=== PATIENT | male | born 1955 | race Caucasian/White ===

== ENCOUNTER → 2017-06-30 | Outpatient (CLI) | payer BC ==
[2017-06-30 16:44] LABS: Basophils % (A) 1 %; Eosinophils # (A) 0.1 k/uL (0-0.7); Eosinophils % (A) 2 %; HCT 48.7 % (39.0-53.0); HGB 15.7 gm/dL (13.0-17.5); Lymphocytes # (A) 1.9 k/uL (1.0-4.8); Lymphocytes % (A) 29 %; MCH 28.4 pg (25.0-35.0); MCHC 32.2 g/dL (31.0-37.0); MCV 88.2 fL (80.0-100.0); Mean Platelet Volume 6.6; Monocytes # (A) 0.3 k/uL (0-1.0); Monocytes % (A) 5 %; Neutrophils # (A) 4.2 k/uL (1.3-7.7); Neutrophils % (A) 62 %; Platelet Count 246 k/uL (150-450); RBC 5.52 m/uL (4.30-5.90); RDW 12.6 % (11.5-15.5); WBC 6.7 k/uL (3.8-10.6)
[2017-06-30 16:53] LABS: Potassium 4.8 mmol/L (3.5-5.1)
== END | disposition home or self-care (01) ==
LOC: LABPAT 15:28
PROVIDERS: ATTEND Orthopaedic Surgery
DX: Z01.818 Encounter for other preprocedural examination (principal); Z01.812 Encounter for preprocedural laboratory examination; M75.41 Impingement syndrome of right shoulder
CPT/HCPCS: 36415; 80051; 85025; 93005

== ENCOUNTER 2017-07-21 06:37 | Day surgery (SDC) | payer BC ==
[2017-07-17 17:49] VITALS: BMI 26.4
--- NOTE | 2017-07-20 11:34 | HP ---
HISTORY AND PHYSICAL CHIEF COMPLAINT: Right shoulder pain. 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 He is having pain with overhead use and at night. He has tried medications, injections and therapy with persistence of his symptoms. PAST MEDICAL HISTORY: Significant for depression. PAST SURGICAL HISTORY: Significant for bilateral knee arthroscopy in addition to left shoulder rotator cuff repair. MEDICATIONS: 1. Xanax. 2. Ibuprofen. He denies drug use. FAMILY HISTORY: Significant for cancer. SOCIAL HISTORY: Negative for current tobacco or alcohol use. 16 POINT REVIEW OF SYSTEMS: Otherwise reviewed and is noncontributory. PHYSICAL EXAMINATION: The patient is approximately 6 foot tall, 196 pounds of mesomorphic habitus. HEENT exam is nonfocal. Neck is supple. On examination of his right shoulder, he is tender about the anterior subacromial space. He has mild subacromial crepitus. Active range of motion, forward elevation at 165 degrees, external rotation with the arm at side 75 degrees, internal rotation to T12. Motor strength is 5-/5 for external rotation 5/5 for abduction. Impingement, Neer and Speed tests are positive. His distal neurovascular exam appears to be intact otherwise in the right upper extremity. MRI report for the right shoulder performed August 25, 2015 shows an anterior supraspinatus tendon tear. IMPRESSION: Right shoulder impingement with symptomatic rotator cuff tear. RECOMMENDATION: I talked to the patient at length regarding his treatment options. At this point, he remains quite symptomatic despite conservative measures. After thorough discussion, he opts to proceed with surgery. We will plan to proceed with arthroscopic evaluation with possible subacromial decompression, rotator cuff repair, and possible biceps debridement. Risks and benefits were discussed at length in layman's terms. We will likely perform that as an outpatient procedure. MMODL / IJN: [id number] /
[~2017-07-21 06:37] MED LIST: HYDROmorphone 0.5 MG/0.5 ML SYRINGE IVP PRN; LACTATED RINGERS 1,000 ML IV SCH; MIDAZOLAM 2 MG/2 ML VIAL IV PRN; MORPHINE SULFATE 4 MG/ML SYRINGE IV PRN; ONDANSETRON 4 MG/2 ML VIAL IVP PRN; Pre Op ABX Message 1 EACH MISC MISCELLANE ONE; ceFAZolin IN SWFI 2 GM/20 ML SYRINGE IVP ONE
[2017-07-21] MEDS ORDERED: LIDOCAINE 1% 20 ML VIAL (10MG/ML) FOR IV START INTRADERMA ONE (07:24)
[2017-07-21 07:25] VITALS: RESP 16
[2017-07-21] MEDS ORDERED: LIDOCAINE 2%-EPI 1:100,000 20 ML VIAL ONE (08:07)
[2017-07-21] MEDS ORDERED: fentaNYL (PF) 50 MCG/ML 2 ML AMP ONE (08:07)
[2017-07-21] MEDS ORDERED: SUCCINYLCHOLINE CHLORIDE VIAL 200 MG/10 ML VIAL IV ONE (08:07)
[2017-07-21] MEDS ORDERED: PHENYLEPHRINE-0.9% NACL SYG 1 MG/10 ML SYRINGE ONE (08:07)
[2017-07-21] MEDS ORDERED: ROPIVACAINE 5 MG/ML 30 ML VIAL ONE (08:07)
[2017-07-21] MEDS ORDERED: MIDAZOLAM 2 MG/2 ML VIAL ONE (08:07)
[2017-07-21] MEDS ORDERED: LIDOCAINE 1% INJ 10MG/ML (20 ML MDV) ONE (08:07)
[2017-07-21] MEDS ORDERED: PROPOFOL 10 MG/ML 20 ML VIAL IV ONE (08:07)
[2017-07-21] MEDS ORDERED: SODIUM CHLORIDE 0.9% 50 ML with ceFAZolin 2,000 MG IV ONE ×2 (08:18)
[2017-07-21] MEDS ORDERED: EPINEPHrine (PF) 1 ML in SODIUM CHLORIDE 0.9% IRRIGATIO 3,000 ML IRRIGATION ONE ×8 (08:30)
--- NOTE | 2017-07-21 09:42 | P.OP ---
Date of Procedure: 07/21/17 Preoperative Diagnosis: Symptomatic right rotator cuff tear Postoperative Diagnosis: 3 cm right rotator cuff tear/partial thickness tear long head of the biceps/ type I superior labral tear Procedure(s) Performed: Right shoulder arthroscopic rotator cuff repair/subacromial decompression/ biceps debridement/superior labral debridement Implants: Arthrex 4.75 mm swivel lock anchor 2, 5.5 mm swivel lock anchor 2 Anesthesia: MELODYA, regional Surgeon: Jeffrey Hernández Lay Out Maker #1: Felton Gonzlaez Estimated Blood Loss (ml): 10 Pathology: none sent Condition: stable Disposition: PACU Indications for Procedure: The patient is a 61-year-old male presents with progressive right shoulder pain secondary to a rotator cuff tear despite conservative measures. A discussion of the risks and benefits of operative intervention versus continued conservative measures was made with the patient. He opted to proceed with surgery. Operative risks to include infection, neurovascular injury, development of blood clots, possible tendon rerupture, possible postoperative stiffness and need for subsequent procedures was discussed. Informed consent was obtained. Operative Findings: As below Description of Procedure: The patient was brought to the operating room, and after induction of general anesthesia was placed in a beachchair position. I examined the right shoulder. There was no gross block to passive motion. There was no gross glenohumeral instability. The right upper extremity was prepped and draped in normal fashion. The bony outlines the acromion, distal clavicle, and coracoid process were outlined with a skin marker. The glenohumeral joint was inflated 50 mL of saline utilizing a spinal needle from posterior approach. A blunt trocar was used to easily into the joint. Diagnostic arthroscopy was performed. An anterior portal was made lateral to the coracoid process entering the joint above the subscapularis tendon. The subscapularis appeared to be intact. Anterior labrum was intact. A partial thickness tear involving the into articular portion of the long head of biceps was noted. This involved less than 10% of the tendon thickness. This was debrided back to stable base with a motorized shaver. A type I superior labral tear was noted and this was debrided back to stable base with motorized shaver. The posterior labrum was intact. On inspection of the rotator cuff, a 2.5 cm full-thickness tear was noted involving the supraspinatus and a small portion of the infraspinatus tendon. The posterior portion the cuff was intact. The inferior recess was inspected. Minimal degenerative changes involving the humeral head and glenoid were noted. The arthroscope was then placed into the subacromial space. A lateral portal was made through a 5 Charline a incision 27 inferior to the anterolateral border the acromion. The soft tissue on the undersurface of the acromion was treated with a motorized shaver and with electrocautery clearly defining the anterior medial and lateral borders as well as the distal clavicle. The coracoacromial ligament was detached from the anterior acromion with electrocautery. An anterior inferior acromioplasty was performed starting anterolateral, then extending this posteriorly, then extending this medially. Is able to convert to a flat acromion. This is verified from the posterior and lateral viewing portals. Attention was then paid towards the rotator cuff. This is easily mobilized back to the greater tuberosity. The edges were debrided with a motorized shaver. The greater tuberosity was prepared and lightly decorticated down to bleeding bony surface. An accessory superior lateral portal( made just lateral to the acromion through a 4 mm skin incision for placement of the anchors. 2 anchors were then placed just off the articular surface with the appropriate starting awl. 4.75 mm anchors were placed with #2 fiber tape preloaded. Good purchase was obtained. The fiber tape was then passed the rotator cuff with a scorpion suture passer. These tapes were then crisscrossed and a lateral row was created utilizing 2 anchors measuring 5.5 mm in diameter. The rotator cuff was appropriately tensioned. Good purchase was obtained with these anchors. Final arthroscopic view showed adequate yarsani of footprint with compression. The arthroscope was then removed. The portals were closed with simple 3-0 nylon suture. A sterile dressing was applied in addition to an abductor brace. The patient was awoken from general anesthesia and transferred to the recovery room in good condition. Blood loss was estimated at 10 mL. No complications were incurred. Sponge and needle counts were correct at the end the case.
[2017-07-21] MEDS ORDERED: HYDROmorphone 2 MG/ML 1 ML SYRINGE IVP ONE (09:45)
[2017-07-21 09:50] VITALS: TEMP 97
[2017-07-21] MEDS ORDERED: HYDROcodone/APAP 5-325MG 1 EACH TAB PO ONE (11:00)
[2017-07-21 11:15] VITALS: BP 130/86; PULSE 74
--- NOTE | 2017-07-23 12:02 | P.ONQ ---
Anesthesiology Proc Note - PNB - Peripheral Nerve Block Performed Right Interscalene Single Time Out Performed: Yes Procedure Start Time: 07:36 Procedure Stop Time: 07:42 Indication: Acute Post-Operative Pain, Requested by physician Sedation Type: Sedate with meaningful contact maintained Preparation: Sterile Prep Position: Supine Needle Size: 50mm (2") Needle Gauge: 21 Technique: Ultrasound Injectate: 0.5% Ropivacaine (see comment for volume) (ropi .5% 30cc) Blood Aspirated: No Pain Paresthesia on Injection Noted: No Resistance on Injection: Normal Events: Uneventful and Well Tolerated
== END 2017-07-21 12:24 | disposition home or self-care (01) ==
LOC: OR 06:37
PROVIDERS: ATTEND Orthopaedic Surgery
DX: M75.101 Unspecified rotator cuff tear or rupture of right shoulder, not specified as traumatic (principal); S46.111A Strain of muscle, fascia and tendon of long head of biceps, right arm, initial encounter; S43.491A Other sprain of right shoulder joint, initial encounter; X58.XXXA Exposure to other specified factors, initial encounter; M24.811 Other specific joint derangements of right shoulder, not elsewhere classified; M19.011 Primary osteoarthritis, right shoulder; F32.9 Major depressive disorder, single episode, unspecified; F41.9 Anxiety disorder, unspecified; Z85.038 Personal history of other malignant neoplasm of large intestine; Z79.1 Long term (current) use of non-steroidal anti-inflammatories (NSAID); Z79.899 Other long term (current) drug therapy
CPT/HCPCS: 64415; 29827; 29826; C1713 ×3; J2250; J0330; J1170 ×2; J2405; J0171; J2001; J3010; J0690; J2795; J2370; J2704

== ENCOUNTER 2018-01-15 11:06 | Emergency (ER) | payer BC ==
[2018-01-15] MEDS ORDERED: KETOROLAC 30 MG/ML 1 ML VIAL IVP STA (11:17)
[2018-01-15] MEDS ORDERED: SODIUM CHLORIDE 0.9% 1,000 ML IV STA (11:17)
[2018-01-15] MEDS ORDERED: METOCLOPRAMIDE 5 MG/ML 2 ML VIAL IVP STA (11:17)
--- NOTE | 2018-01-15 11:22 | ED ---
General Adult HPI - General Chief complaint: Back Pain/Injury Stated complaint: Back pain Time Seen by Provider: 01/15/18 11:12 Source: patient, EMS, RN notes reviewed Mode of arrival: EMS Limitations: no limitations - History of Present Illness Initial comments: Patient is a pleasant 62-year-old male presenting to the emergency Department with right flank discomfort. Onset was just around 1 hour ago. Discomfort was sudden onset. Discomfort feels cramping in nature. Discomfort extends from the right posterior flank around to the abdomen. Patient states it is hard to get comfortable. Discomfort is not positional. No discomfort with hitting the bumps by EMS. Patient did have one episode of vomiting. No constipation or diarrhea. No dysuria or hematuria. No history of similar symptoms previously. - Related Data Home Medications Medication Instructions Recorded Confirmed ALPRAZolam [Xanax] 0.5 mg PO Q8HR PRN 01/27/15 01/15/18 Calcium Carbonate [Tums] 500 mg PO AC-TID PRN 01/27/15 01/15/18 Cetirizine HCl [Zyrtec] 10 mg PO DAILY 01/15/18 01/15/18 Ibuprofen [Motrin Ib] 600 mg PO Q6H PRN 01/15/18 01/15/18 Allergies Allergy/AdvReac Type Severity Reaction Status Date / Time No Known Allergies Allergy Verified 01/15/18 11:33 Review of Systems ROS Statement: Those systems with pertinent positive or pertinent negative responses have been documented in the HPI. ROS Other: All systems not noted in ROS Statement are negative. Constitutional: Denies: fever Eyes: Denies: eye pain ENT: Denies: ear pain Respiratory: Denies: dyspnea Cardiovascular: Denies: chest pain Endocrine: Denies: fatigue Gastrointestinal: Reports: abdominal pain, vomiting. Denies: diarrhea, constipation Genitourinary: Denies: hematuria Musculoskeletal: Reports: back pain Skin: Denies: rash Neurological: Denies: weakness Past Medical History Past Medical History: Cancer, Hyperlipidemia, Osteoarthritis (OA), Skin Disorder Additional Past Medical History / Comment(s): NON HODGKINS LYMPHOMA DX 2003-HAD CHEMO. MILD PSORIASIS History of Any Multi-Drug Resistant Organisms: None Reported Past Surgical History: Bowel Resection, Orthopedic Surgery Additional Past Surgical History / Comment(s): BOWEL RESECTION R/T REMOVAL OF ABD. TUMOR. BILAT KNEE SCOPES. COLONOSCOPY Past Anesthesia/Blood Transfusion Reactions: Motion Sickness Past Psychological History: No Psychological Hx Reported Smoking Status: Never smoker Past Alcohol Use History: None Reported Past Drug Use History: None Reported - Past Family History Mother Family Medical History: Cancer Sister(s) Family Medical History: Cancer Additional Family Medical History / Comment(s): 2 SISTERS WITH HX CANCER General Exam Limitations: no limitations General appearance: alert, in distress (Patient does appear uncomfortable) Head exam: Present: atraumatic Eye exam: Present: normal appearance, PERRL ENT exam: Present: normal oropharynx Neck exam: Present: normal inspection Respiratory exam: Present: normal lung sounds bilaterally Cardiovascular Exam: Present: regular rate, normal rhythm Expanded Peripheral pulses: 2+: Radial (R), Radial (L), Dorsalis Pedis (R), Dorsalis Pedis (L) GI/Abdominal exam: Present: soft, normal bowel sounds. Absent: distended, tenderness, guarding, rebound, rigid, pulsatile mass Extremities exam: Present: normal inspection. Absent: pedal edema, calf tenderness Back exam: Present: normal inspection. Absent: tenderness, CVA tenderness (R) ( No tenderness in the right CVA however patient states that is where the discomfort starts) Neurological exam: Present: alert Psychiatric exam: Present: normal affect, normal mood Skin exam: Present: normal color. Absent: rash Course Vital Signs 01/15/18 11:11 Temperature 97.6 F Pulse Rate 66 Respiratory 20 Rate Blood Pressure 144/80 O2 Sat by Pulse 100 Oximetry Medical Decision Making - Medical Decision Making Patient reevaluated and resting comfortably in bed. Patient symptom-free. Patient and family updated on results. - Lab Data Result diagrams: 01/15/18 11:15 01/15/18 11:15 Lab Results 01/15/18 01/15/18 01/15/18 Range/Units 11:15 11:15 11:15 WBC 7.0 (3.8-10.6) k/uL RBC 5.54 (4.30-5.90) m/uL Hgb 15.4 (13.0-17.5) gm/dL Hct 46.8 (39.0-53.0) % MCV 84.4 (80.0-100.0) fL MCH 27.7 (25.0-35.0) pg MCHC 32.8 (31.0-37.0) g/dL RDW 13.1 (11.5-15.5) % Plt Count 252 (150-450) k/uL Neutrophils % 54 % Lymphocytes % 34 % Monocytes % 6 % Eosinophils % 3 % Basophils % 0 % Neutrophils # 3.8 (1.3-7.7) k/uL Lymphocytes # 2.4 (1.0-4.8) k/uL Monocytes # 0.4 (0-1.0) k/uL Eosinophils # 0.2 (0-0.7) k/uL Basophils # 0.0 (0-0.2) k/uL PT 10.0 (9.0-12.0) sec INR 1.0 (<1.2) APTT 22.8 (22.0-30.0) sec Sodium 140 (137-145) mmol/L Potassium 4.2 (3.5-5.1) mmol/L Chloride 109 H (98-107) mmol/L Carbon Dioxide 23 (22-30) mmol/L Anion Gap 8 mmol/L BUN 16 (9-20) mg/dL Creatinine 0.76 (0.66-1.25) mg/dL Est GFR (CKD-EPI)AfAm >90 (>60 ml/min/1.73 sqM) Est GFR (CKD-EPI)NonAf >90 (>60 ml/min/1.73 sqM) Glucose 96 (74-99) mg/dL Calcium 9.1 (8.4-10.2) mg/dL Total Bilirubin 0.4 (0.2-1.3) mg/dL AST 32 (17-59) U/L ALT 30 (21-72) U/L Alkaline Phosphatase 82 (38-126) U/L Total Protein 6.6 (6.3-8.2) g/dL Albumin 4.0 (3.5-5.0) g/dL Amylase 67 (30-110) U/L Lipase 159 (23-300) U/L Urine Color Urine Appearance (Clear) Urine pH (5.0-8.0) Ur Specific [place] (1.001-1.035) Urine Protein (Negative) Urine Glucose (UA) (Negative) Urine Ketones (Negative) Urine Blood (Negative) Urine Nitrite (Negative) Urine Bilirubin (Negative) Urine Urobilinogen (<2.0) mg/dL Ur Leukocyte Esterase (Negative) Urine RBC (0-5) /hpf Urine WBC (0-5) /hpf Ur Squamous Epith Cells (0-4) /hpf Urine Mucus (None) /hpf 01/15/18 Range/Units 12:35 WBC (3.8-10.6) k/uL RBC (4.30-5.90) m/uL Hgb (13.0-17.5) gm/dL Hct (39.0-53.0) % MCV (80.0-100.0) fL MCH (25.0-35.0) pg MCHC (31.0-37.0) g/dL RDW (11.5-15.5) % Plt Count (150-450) k/uL Neutrophils % % Lymphocytes % % Monocytes % % Eosinophils % % Basophils % % Neutrophils # (1.3-7.7) k/uL Lymphocytes # (1.0-4.8) k/uL Monocytes # (0-1.0) k/uL Eosinophils # (0-0.7) k/uL Basophils # (0-0.2) k/uL PT (9.0-12.0) sec INR (<1.2) APTT (22.0-30.0) sec Sodium (137-145) mmol/L Potassium (3.5-5.1) mmol/L Chloride (98-107) mmol/L Carbon Dioxide (22-30) mmol/L Anion Gap mmol/L BUN (9-20) mg/dL Creatinine (0.66-1.25) mg/dL Est GFR (CKD-EPI)AfAm (>60 ml/min/1.73 sqM) Est GFR (CKD-EPI)NonAf (>60 ml/min/1.73 sqM) Glucose (74-99) mg/dL Calcium (8.4-10.2) mg/dL Total Bilirubin (0.2-1.3) mg/dL AST (17-59) U/L ALT (21-72) U/L Alkaline Phosphatase (38-126) U/L Total Protein (6.3-8.2) g/dL Albumin (3.5-5.0) g/dL Amylase (30-110) U/L Lipase (23-300) U/L Urine Color Yellow Urine Appearance Clear (Clear) Urine pH 7.0 (5.0-8.0) Ur Specific [place] 1.016 (1.001-1.035) Urine Protein Negative (Negative) Urine Glucose (UA) Negative (Negative) Urine Ketones Negative (Negative) Urine Blood Large H (Negative) Urine Nitrite Negative (Negative) Urine Bilirubin Negative (Negative) Urine Urobilinogen <2.0 (<2.0) mg/dL Ur Leukocyte Esterase Trace H (Negative) Urine RBC 35 H (0-5) /hpf Urine WBC 3 (0-5) /hpf Ur Squamous Epith Cells <1 (0-4) /hpf Urine Mucus Occasional H (None) /hpf - Radiology Data Radiology results: report reviewed (Computed tomography scan of the abdomen pelvis shows 3 mm stone in the bladder consistent with recently passed stone. Hernia.), image reviewed (KUB shows no acute process.) Disposition Clinical Impression: Ureterolithiasis Disposition: HOME SELF-CARE Condition: Stable Instructions: Kidney Stones (ED) Additional Instructions: Please follow-up with primary care physician in the next couple days for recheck. Return for fevers, difficulty with urinating, increased pain, worsening or changing symptoms or other concerns. Is patient prescribed a controlled substance at d/c from ED?: No Referrals: Crescencio Young MD [Primary Care Provider] - 1-2 days Time of Disposition: 13:20
[2018-01-15 12:01] LABS: Basophils % (A) 0 %; Eosinophils # (A) 0.2 k/uL (0-0.7); Eosinophils % (A) 3 %; HCT 46.8 % (39.0-53.0); HGB 15.4 gm/dL (13.0-17.5); Lymphocytes # (A) 2.4 k/uL (1.0-4.8); Lymphocytes % (A) 34 %; MCH 27.7 pg (25.0-35.0); MCHC 32.8 g/dL (31.0-37.0); MCV 84.4 fL (80.0-100.0); Mean Platelet Volume 7.5; Monocytes # (A) 0.4 k/uL (0-1.0); Monocytes % (A) 6 %; Neutrophils # (A) 3.8 k/uL (1.3-7.7); Neutrophils % (A) 54 %; Platelet Count 252 k/uL (150-450); RBC 5.54 m/uL (4.30-5.90); RDW 13.1 % (11.5-15.5)
--- NOTE | 2018-01-15 12:08 | CT ---
EXAMINATION TYPE: CT abdomen pelvis wo con DATE OF EXAM: 01/15/2018 COMPARISON: None HISTORY: Right-sided flank pain CT DLP: 583.9 mGycm Automated exposure control for dose reduction was used. TECHNIQUE: Helical acquisition of images was performed from the lung bases through the pelvis. FINDINGS: LUNG BASES: Reticular opacities at the lung bases is favored to represent atelectasis. LIVER/GB: No cholelithiasis. Unremarkable unenhanced morphology of the liver. PANCREAS: No significant abnormality is seen. No ductal dilatation. SPLEEN: No splenomegaly. ADRENALS: No nodularity or thickening. 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 There is slight blunting of the rig ht calyces and very mild right ureteral dilatation. A 3 mm calculus is seen within the urinary bladde r just distal to the right ureterovesicular Junction likely representing a recently passed calculus. Mild fat stranding at the right renal pelvis such as on series 3 image 51. Within the right lower barbie e there is a nonobstructing additional 5 mm calculus. There is also slight malrotation of the left re nal axis. Punctate mid pole 2 mm and lower pole 3 mm nonobstructing renal calculi are seen. No left-s ided hydronephrosis.. FREE AIR: No free air is visualized REPRODUCTIVE ORGANS: Prostate gland is heterogenous containing numerous dystrophic calcifications. ADENOPATHY: No greater than 1 cm short axis lymph nodes are present within the abdomen or pelvis. OSSEOUS STRUCTURES: No significant abnormality is seen. BOWEL: There is a moderate amount retained colonic stool. Scattered diverticula are present without pericolonic fat stranding. Anastomotic small bowel site is not identified with no evidence of obstruc tive stricture. Appendix is within normal limits. OTHER: There is an omental fat filled wide necked ventral abdominal hernia with a 4.2 cm abdominal wa ll defect. No abutting bowel. This is seen superior to the umbilicus. Moderate calcific atheromatous changes are seen of the abdominal aorta and its branches. IMPRESSION: 1. MILD RIGHT HYDROURETERONEPHROSIS SECONDARY TO A 3 MM CALCULUS WITHIN THE URINARY BLADDER JUST DIST AL TO THE RIGHT URETEROVESICULAR JUNCTION.REPRESENT A RECENTLY PASSED CALCULUS. ADDITIONAL NONOBSTRUC TING BILATERAL RENAL CALCULI ARE PRESENT. 2. FAT FILLED SUPRAUMBILICAL VENTRAL ABDOMINAL HERNIA WITH A WIDE NECK AND NO ABUTTING BOWEL.
[2018-01-15 12:12] LABS: ALT 30 U/L (21-72); AST 32 U/L (17-59); Alkaline Phosphatase 82 U/L (38-126); Amylase 67 U/L (30-110); Anion Gap 8 mmol/L; Blood Urea Nitrogen 16 mg/dL (9-20); Calcium 9.1 mg/dL (8.4-10.2); Carbon Dioxide 23 mmol/L (22-30); Chloride 109 mmol/L (98-107); Glucose 96 mg/dL (74-99); Lipase 159 U/L (23-300); Potassium 4.2 mmol/L (3.5-5.1); Sodium 140 mmol/L (137-145); Total Bilirubin 0.4 mg/dL (0.2-1.3); Total Protein 6.6 g/dL (6.3-8.2)
[2018-01-15 12:36] LABS: Partial Thromboplastin Time 22.8 sec (22.0-30.0)
--- NOTE | 2018-01-15 12:37 | XR ---
Abdomen HISTORY: Right flank pain, abdominal pain Frontal view of the abdomen on 2 images, correlation to CT abdomen pelvis same date Lung bases are clear. There is no evident bowel obstruction or pneumoperitoneum. There are multiple c alcifications scattered within the pelvis. Mild degenerative disc changes noted in the visualized spi ne. IMPRESSION: Patient's distal right ureteral calculus not well seen possibly due to size, technique.
[2018-01-15 13:02] LABS: Appearance,Urine Clear (Clear); Bilirubin,Urine Negative (Negative); Blood,Urine Large (Negative); Color,Urine Yellow; Glucose,Urine (UA) Negative (Negative); Ketones,Urine Negative (Negative); Leukocyte Esterase,Urine Trace (Negative); Mucus,Urine Occasional /hpf; Nitrite,Urine Negative (Negative); Protein,Urine Negative (Negative); RBC,Urine 35 /hpf (0-5); Specific Gravity,Urine 1.016 (1.001-1.035); Squamous Epithelial Cell,Urine <1 /hpf (0-4); Urobilinogen,Urine <2.0 mg/dL (<2.0); WBC,Urine 3 /hpf (0-5)
[2018-01-15 13:36] VITALS: BP 118/78; PULSE 70; RESP 18; TEMP 98
== END 2018-01-15 13:36 | disposition home or self-care (01) ==
LOC: EC 11:06
DX: N20.1 Calculus of ureter (principal); K46.9 Unspecified abdominal hernia without obstruction or gangrene; Z79.899 Other long term (current) drug therapy; Z85.72 Personal history of non-Hodgkin lymphomas; Z92.21 Personal history of antineoplastic chemotherapy; Z90.49 Acquired absence of other specified parts of digestive tract
CPT/HCPCS: 36415; 80053; 82150; 83690; 85025; 85610; 85730; 81001; 74018; 74176; 99284; 96374; 96375; 96361 ×2; J2765; J1885

== ENCOUNTER → 2018-11-30 | Outpatient (CLI) | payer BC ==
--- NOTE | 2018-12-01 15:32 | XR ---
EXAMINATION TYPE: XR chest 2V DATE OF EXAM: 11/30/2018 COMPARISON: NONE HISTORY: Dyspnea. History of non-Hodgkin lymphoma. TECHNIQUE: Frontal and lateral views of the chest are obtained. FINDINGS: There is no focal air space opacity, pleural effusion, or pneumothorax seen. The cardiac silhouette size is within normal limits. The osseous structures are intact. IMPRESSION: No acute cardiopulmonary process.
--- NOTE | 2018-12-01 16:29 | XR ---
EXAMINATION TYPE: XR abdomen 2V DATE OF EXAM: 11/30/2018 CLINICAL HISTORY: Dyspnea and abdominal discomfort. TECHNIQUE: Supine and upright views of the abdomen are obtained. COMPARISON: Abdominal x-ray and CT January 15, 2018. FINDINGS: Scattered gas is seen in non-distended stomach and small bowel loops. Gas and fecal mater ial is seen in non-distended colon. A few scattered left-sided pelvic phleboliths are present. Lung b ases are clear. No pneumoperitoneum is present. Pelvic vascular calcification is again seen. IMPRESSION: Overall nonobstructive bowel gas pattern remains present.
== END | disposition home or self-care (01) ==
LOC: RADXRMAIN 16:14
PROVIDERS: ATTEND Internal Medicine Hematology & Oncology
DX: C82.09 Follicular lymphoma grade I, extranodal and solid organ sites (principal)
CPT/HCPCS: 71046; 74019

== ENCOUNTER 2018-12-18 07:40 | Day surgery (SDC) | payer BC ==
[2018-12-13 14:52] VITALS: BMI 25.7
[~2018-12-18 07:40] MED LIST changes: -HYDROmorphone 0.5 MG/0.5 ML SYRINGE IVP PRN; +LIDOCAINE 1% 20 ML VIAL (10MG/ML) FOR IV START INTRADERMA PRN; -MIDAZOLAM 2 MG/2 ML VIAL IV PRN; -MORPHINE SULFATE 4 MG/ML SYRINGE IV PRN; -ONDANSETRON 4 MG/2 ML VIAL IVP PRN; -Pre Op ABX Message 1 EACH MISC MISCELLANE ONE; -ceFAZolin IN SWFI 2 GM/20 ML SYRINGE IVP ONE
[2018-12-18 07:53] VITALS: TEMP 98
[2018-12-18] MEDS ORDERED: PROPOFOL 10 MG/ML 20 ML VIAL IV ONE (08:05)
--- NOTE | 2018-12-18 08:12 | P.GSHP ---
History of Present Illness H&P Date: 12/18/18 Chief Complaint: gerd, screening Patient here today for upper and lower endoscopy. Patient has a complaints of intermittent reflux and cough along. No bowel related complaints. No family history of colon cancer. Last colonoscopy 2002. He has tried antacids with no relief. Past Medical History Past Medical History: Cancer, Hyperlipidemia, Osteoarthritis (OA), Skin Disorder Additional Past Medical History / Comment(s): NON HODGKINS LYMPHOMA DX 2002-HAD CHEMO. MILD PSORIASIS History of Any Multi-Drug Resistant Organisms: None Reported Past Surgical History: Bowel Resection, Orthopedic Surgery Additional Past Surgical History / Comment(s): BOWEL RESECTION R/T REMOVAL OF ABD. TUMOR. BILAT KNEE SCOPES. COLONOSCOPY. BILAT ROTATOR CUFF REPAIR Past Anesthesia/Blood Transfusion Reactions: Motion Sickness Smoking Status: Never smoker - Past Family History Mother Family Medical History: Cancer Sister(s) Family Medical History: Cancer Additional Family Medical History / Comment(s): 2 SISTERS WITH HX CANCER Medications and Allergies Home Medications Medication Instructions Recorded Confirmed Type No Known Home Medications 12/13/18 12/18/18 History Allergies Allergy/AdvReac Type Severity Reaction Status Date / Time No Known Allergies Allergy Verified 12/13/18 14:28 Surgical - Exam Vital Signs Temp Pulse Resp BP Pulse Ox 98.0 F 96 16 137/82 98 12/18/18 07:51 12/18/18 07:51 12/18/18 07:51 12/18/18 07:51 12/18/18 07:51 Physical exam: General: Well-developed, well-nourished HEENT: Normocephalic, sclerae nonicteric Abdomen: Nontender, nondistended Extremities: No edema Neuro: Alert and oriented Assessment and Plan (1) Colon cancer screening Narrative/Plan: Will proceed with upper and lower endoscopy at this time. Current Visit: Yes Status: Acute Code(s): Z12.11 - ENCOUNTER FOR SCREENING FOR MALIGNANT NEOPLASM OF COLON SNOMED Code(s): 097567454
--- NOTE | 2018-12-18 08:35 | P.PCN ---
Date of Procedure: 12/18/18 Procedure(s) Performed: PREOPERATIVE DIAGNOSIS: GERD, screening POSTOPERATIVE DIAGNOSIS: Gastric nodule, gastritis, hiatal hernia, ascending colon polyp PROCEDURE: 1. EGD with biopsy 2. Colonoscopy with biopsy ANESTHESIA: MAC SURGEON: Kurtis Javier M.D. SPECIMENS: Gastric nodule, antrum, polyp ENDOSCOPIC PROCEDURE: The patient was on the endoscopy table in the left decubitus position. The Olympus gastroscope was inserted into the oropharynx and passed under direct visualization to the region of the third portion of the duodenum. From that point the scope was slowly withdrawn inspecting all surfaces carefully. There were no neoplastic inflammatory or polypoid lesions throughout the duodenum. The pylorus was widely patent. The stomach was carefully inspected. There was mild gastritis present. A there was also a small 7-8 mm submucosal nodule in the antrum of the stomach. A biopsy of this area took place as well. A biopsy of the antrum took place to rule out H. pylori. Retroflexion revealed a hiatal hernia. The Z line was present 2 cm above the diaphragmatic hiatus. The patient's esophagus was examined and appeared normal. The patient was kept on the endoscopy table in the left decubitus position. The Olympus colonoscope was inserted into the anus and passed under direct visualization to the base of the cecum. The appendiceal orifice was visualized. From that point the scope was slowly withdrawn inspecting all surfaces carefully. There were no neoplastic inflammatory or polypoid lesions throughout the cecum. In the ascending colon a small polyp was identified and removed using the cold biopsy forceps. The remainder of the transverse descending sigmoid and rectum appeared normal. There was no visible diverticulosis. Digital rectal examination was normal. The patient was taken to the recovery room in stable condition per anesthesia guidelines. RECOMMENDATIONS: Await biopsy results.
[2018-12-18 09:05] VITALS: BP 122/82; PULSE 79; RESP 18
== END 2018-12-18 09:41 | disposition home or self-care (01) ==
LOC: ORWHC2ENDO 07:40
PROVIDERS: ATTEND Surgery
DX: Z12.11 Encounter for screening for malignant neoplasm of colon (principal); D12.2 Benign neoplasm of ascending colon; K29.50 Unspecified chronic gastritis without bleeding; K21.9 Gastro-esophageal reflux disease without esophagitis; K44.9 Diaphragmatic hernia without obstruction or gangrene; E78.5 Hyperlipidemia, unspecified; M19.90 Unspecified osteoarthritis, unspecified site; L40.9 Psoriasis, unspecified; Z90.49 Acquired absence of other specified parts of digestive tract; Z92.21 Personal history of antineoplastic chemotherapy; Z85.72 Personal history of non-Hodgkin lymphomas
CPT/HCPCS: 88305; 45380; 43239; J2704

== ENCOUNTER 2024-12-15 15:18 | Emergency (ER) | payer MEDICARE, OTHER ==
[2024-12-15] MEDS: PANTOPRAZOLE 40 MG/10 ML VIAL IVP STA (16:10)
[2024-12-15] MEDS: ONDANSETRON 4 MG/2 ML VIAL IVP STA (16:10)
[2024-12-15] MEDS: KETOROLAC 15 MG/ML 1 ML VIAL IVP STA (16:11)
[2024-12-15] MEDS: MORPHINE SULFATE 4 MG/ML SYRINGE IVP STA (16:12)
[2024-12-15] MEDS: SODIUM CHLORIDE 0.9% 1,000 ML IV ONE ×2 (16:16→17:47)
[2024-12-15 16:26] LABS: Basophils # (A) 0.05 10*3/uL (0.00-0.10); Basophils % (A) 0.6 %; Eosinophils # (A) 0.11 10*3/uL (0.04-0.35); Eosinophils % (A) 1.4 %; HCT 45.6 % (39.6-50.0); HGB 15.5 g/dL (13.0-17.0); Lymphocytes # (A) 1.75 10*3/uL (0.90-5.00); Lymphocytes % (A) 21.6 %; MCH 29.1 pg (27.0-32.0); MCV 85.7 fL (80.0-97.0); Mean Platelet Volume 9.1 fL (9.5-12.2); Monocytes # (A) 0.41 10*3/uL (0.20-1.00); Monocytes % (A) 5.1 %; Neutrophils # (A) 5.76 10*3/uL (1.80-7.70); Neutrophils % (A) 71.2 %; Platelet Count 262 10*3/uL (140-440); RBC 5.32 10*6/uL (4.40-5.60); RDW 12.8 % (11.5-14.5); WBC 8.09 10*3/uL (4.50-10.00)
[2024-12-15 16:37] LABS: ALT 23 U/L (4-49); AST 36 U/L (17-59); African American GFR (CKD) >90 (>60 ml/min/1.73 sqM); Albumin 4.9 g/dL (3.5-5.0); Alkaline Phosphatase 85 U/L (38-126); Amylase 72 U/L (30-110); Anion Gap 12 mmol/L; Blood Urea Nitrogen 16 mg/dL (9-20); Calcium 10.1 mg/dL (8.4-10.2); Carbon Dioxide 24 mmol/L (22-30); Chloride 101 mmol/L (98-107); Glucose 111 mg/dL (74-99); Lipase 143 U/L (23-300); Non-African American GFR(CKD) 88 (>60 ml/min/1.73 sqM); Potassium 4.5 mmol/L (3.5-5.1); Sodium 137 mmol/L (137-145); Total Bilirubin 0.6 mg/dL (0.2-1.3); Total Protein 7.8 g/dL (6.3-8.2)
--- NOTE | 2024-12-15 17:26 | ED ---
General Adult HPI - General Chief complaint: Abdominal Pain Stated complaint: Left flank pain Time Seen by Provider: 12/15/24 15:42 Source: patient, RN notes reviewed, old records reviewed Mode of arrival: ambulatory Limitations: no limitations - History of Present Illness Initial comments: Patient is a 69-year-old male presents emergency department complaining of left flank pain for a few days. He has a history of kidney stones on the right. History of non-Hodgkin's lymphoma as well. Has not seen a physician regarding this. Has not noticed any dysuria or hematuria. States the pain reminds him of his previous kidney stones. Endorses mild nausea. Denies any diarrhea. Denies any chest pain or shortness of breath. Denies any fevers. Denies any cough or congestion. Presents for further evaluation at this time. - Related Data Previous Rx's Medication Instructions Recorded Ketorolac [Toradol] 15 mg IM TID PRN 5 Days #15 each 12/15/24 Tamsulosin [Flomax] 0.4 mg PO DAILY 14 Days #14 cap 12/15/24 Allergies Allergy/AdvReac Type Severity Reaction Status Date / Time No Known Allergies Allergy Verified 12/15/24 15:33 Review of Systems ROS Statement: Those systems with pertinent positive or pertinent negative responses have been documented in the HPI. Review of Systems: CONST: Denies fever EYES: Denies blurry vision ENT: Denies nasal congestion C/V: Denies Chest pain RESP: Denies shortness of breath GI: Endorses abdominal pain : Denies dysuria SKIN: Denies rash. MSK: Denies joint pain. NEURO: Denies headache ROS Other: All systems not noted in ROS Statement are negative. Past Medical History Past Medical History: Cancer, Hyperlipidemia, Osteoarthritis (OA), Skin Disorder Additional Past Medical History / Comment(s): NON HODGKINS LYMPHOMA DX 2003-HAD CHEMO,Kidney stones. MILD PSORIASIS History of Any Multi-Drug Resistant Organisms: None Reported Past Surgical History: Bowel Resection, Orthopedic Surgery Additional Past Surgical History / Comment(s): BOWEL RESECTION R/T REMOVAL OF A BD. TUMOR. BILAT KNEE SCOPES. COLONOSCOPY. BILAT ROTATOR CUFF REPAIR Past Anesthesia/Blood Transfusion Reactions: Motion Sickness Past Psychological History: No Psychological Hx Reported Smoking Status: Never smoker Past Alcohol Use History: None Reported Past Drug Use History: None Reported - Past Family History Mother Family Medical History: Cancer Sister(s) Family Medical History: Cancer Additional Family Medical History / Comment(s): 2 SISTERS WITH HX CANCER General Exam - General Exam Comments Initial Comments: General: Appears in mild distress secondary to abdominal pain. HEAD: Normal with no signs of head trauma. EYES: PERRLA, EOMI, conjunctiva normal, no discharge. Pupils are 3 mm and equal bilaterally. ENT: Hearing grossly intact, normal oropharynx. RESPIRATORY: Clear breath sounds bilaterally. No wheezes, rales, or rhonchi. C/V: Regular rate and rhythm. S1 and S2 auscultated, peripheral pulses 2+ and intact throughout ABD: Abdomen soft, nondistended. Tender palpation over the left flank. No significant CVA tenderness percussion but is tender throughout the left flank radiating from the back to the groin region. No guarding or rebound tenderness. No peritoneal signs. EXT: no obvious deformity SKIN: No rashes or lesions observed on exposed skin. NEURO: Alert and oriented x 4. Limitations: no limitations Course Vital Signs 12/15/24 12/15/24 15:31 19:13 Temperature 97.5 F L 97.9 F Pulse Rate 72 69 Respiratory 20 18 Rate Blood Pressure 168/95 151/82 O2 Sat by Pulse 98 99 Oximetry Medical Decision Making - Medical Decision Making Was pt. sent in by a medical professional or institution ([facility], [facility], urgent care, hospital, or group home...) When possible be specific @ -No Did you speak to anyone other than the patient for history (EMS, parent, family, police, friend...)? What history was obtained from this source @ -No Did you review nursing and triage notes (agree or disagree)? Why? @ -I reviewed and agree with nursing and triage notes Were old charts reviewed (outside hosp., previous admission, EMS record, old EKG, old radiological studies, urgent care reports/EKG's, group home records)? Report findings @ -No old charts were reviewed Differential Diagnosis (chest pain, altered mental status, abdominal pain women, abdominal pain men, vaginal bleeding, weakness, fever, dyspnea, syncope, headache, dizziness, GI bleed, back pain, seizure, CVA, palpatations, mental health, musculoskeletal)? @ -Differential Abdominal Pain Men: Appendicitis, cholecystitis, diverticulosis, ischemic bowel, pancreatitis, hepatitis, UTI, gastroenteritis, AAA, incarcerated hernia, bowel obstruction, constipation, inflammatory bowel, hepatitis, peptic ulcer disease, splenic infarction, perforated viscus, testicular torsion, this is not meant to be an all-inclusive list EKG interpreted by me (3pts min.). @ -As above X-rays interpreted by me (1pt min.). @ -None done CT interpreted by me (1pt min.). @ -CT imaging shows a left-sided hydronephrosis secondary to 5 mm ureterolithiasis at the UPJ. Additional nonobstructing renal calculi present. Mild left-sided hydronephrosis present. U/S interpreted by me (1pt. min.). @ -None done What testing was considered but not performed or refused? (CT, X-rays, U/S, labs)? Why? @ -None What meds were considered but not given or refused? Why? @ -None Did you discuss the management of the patient with other professionals (professionals i.e. , PA, [facility], lab, RT, psych nurse, geriatric social work professor, carrier loader, teacher, affirmative action officer, keycase assembler)? Give summary @ -No Was smoking cessation discussed for >3mins.? @ -No Was critical care preformed (if so, how long)? @ -No Were there social determinants of health that impacted care today? How? (Homelessness, low income, unemployed, alcoholism, drug addiction, transportat ion, low edu. Level, literacy, decrease access to med. care, senior care, rehab)? @ -No Was there de-escalation of care discussed even if they declined (Discuss DNR or withdrawal of care, Hospice)? DNR status @ -No What co-morbidities impacted this encounter? (DM, HTN, Smoking, COPD, CAD, Cancer, CVA, ARF, Chemo, Hep., AIDS, mental health diagnosis, sleep apnea, morbid obesity)? @ -None Was patient admitted / discharged? Hospital course, mention meds given and route, prescriptions, significant lab abnormalities, going to OR and other pertinent info. @ -Based on patient's presentation physical exam, presents emergency department complaining of left flank pain. Concern for kidney stone. Has a history of kidney stones. We obtain CT imaging as well as abdominal labs and urinalysis. He is given analgesia medications with IV indigestion IV fluids and nausea meds. He was in agreement this plan. Vital signs are within acceptable limits. Laboratory studies returned remarkable for lactic acidosis of 3.1. Likely secondary to dehydration. CT imaging shows a left-sided hydronephrosis secondary to 5 mm ureterolithiasis at the UPJ. Additional nonobstructing renal calculi present. Mild left-sided hydronephrosis present.Urinalysis shows hematuria but no evidence of infection. Patient was updated on results. He is resting comfortably at this time after receiving 2 L fluid bolus. He is tolerating oral intake. Pain is controlled. I discussed results with patient. Kidney stone will likely pass on its own. He will be discharged home with a strainer, prescription for ketorolac and Flomax, and patient will receive a dose of Flomax. Patient will be given a starter pack of Tylenol 3 for home as well as Zofran. Patient was in agreement this plan. Patient will follow-up with urology. I instructed the patient to follow up with their PCP in the next 1-3 days.. I explained that the patient should return to the emergency department if they experience any worsening symptoms. Strict return precautions were discussed with the patient. The patient expressed understanding of these instructions. I answered all questions that the patient had. The patient was discharged home in [good] condition with their prescriptions and follow up information. Undiagnosed new problem with uncertain prognosis? @ -No Drug Therapy requiring intensive monitoring for toxicity (Heparin, Nitro, Insu hugh, Cardizem)? @ -No Were any procedures done? @ -No Diagnosis/symptom? @ -Ureterolithiasis Acute, or Chronic, or Acute on Chronic? @ -Acute Uncomplicated (without systemic symptoms) or Complicated (systemic symptoms)? @ -Uncomplicated Side effects of treatment? @ -None Exacerbation, Progression, or Severe Exacerbation] @ -No Poses a threat to life or bodily function? @ -Unlikely at this time - Lab Data Result diagrams: 12/15/24 16:19 12/15/24 16:19 Lab Results 12/15/24 12/15/24 12/15/24 Range/Units 16:19 16:19 16:19 WBC 8.09 (4.50-10.00) 10*3/uL RBC 5.32 (4.40-5.60) 10*6/uL Hgb 15.5 (13.0-17.0) g/dL Hct 45.6 (39.6-50.0) % MCV 85.7 (80.0-97.0) fL MCH 29.1 (27.0-32.0) pg MCHC 34.0 (32.0-37.0) g/dL Plt Count 262 (140-440) 10*3/uL MPV 9.1 L (9.5-12.2) fL Immature Gran % (Auto) 0.1 % Neutrophils % 71.2 % Lymphocytes % 21.6 % Monocytes % 5.1 % Eosinophils % 1.4 % Basophils % 0.6 % Immature Gran # 0.01 (0.00-0.04) 10*3/uL Neutrophils # 5.76 (1.80-7.70) 10*3/uL Lymphocytes # 1.75 (0.90-5.00) 10*3/uL Monocytes # 0.41 (0.20-1.00) 10*3/uL Eosinophils # 0.11 (0.04-0.35) 10*3/uL Basophils # 0.05 (0.00-0.10) 10*3/uL Sodium 137 (137-145) mmol/L Potassium 4.5 (3.5-5.1) mmol/L Chloride 101 (98-107) mmol/L Carbon Dioxide 24 (22-30) mmol/L Anion Gap 12 mmol/L BUN 16 (9-20) mg/dL Creatinine 0.89 (0.66-1.25) mg/dL Est GFR (CKD-EPI)AfAm >90 (>60 ml/min/1.73 sqM) Est GFR (CKD-EPI)NonAf 88 (>60 ml/min/1.73 sqM) Glucose 111 H (74-99) mg/dL Lactic Ac Sepsis Rflx Plasma Lactic Acid Cristofer 3.1 H* (0.7-2.0) mmol/L Calcium 10.1 (8.4-10.2) mg/dL Total Bilirubin 0.6 (0.2-1.3) mg/dL AST 36 (17-59) U/L ALT 23 (4-49) U/L Alkaline Phosphatase 85 (38-126) U/L Total Protein 7.8 (6.3-8.2) g/dL Albumin 4.9 (3.5-5.0) g/dL Amylase 72 (30-110) U/L Lipase 143 (23-300) U/L Urine Color Urine Appearance (Clear) Urine pH (5.0-8.0) Ur Specific [place] (1.001-1.035) Urine Protein (Negative) Urine Glucose (UA) (Negative) Urine Ketones (Negative) Urine Blood (Negative) Urine Nitrite (Negative) Urine Bilirubin (Negative) Urine Urobilinogen (<2.0) mg/dL Ur Leukocyte Esterase (Negative) Urine RBC (0-5) /hpf Urine WBC (0-5) /hpf Urine Bacteria (None) /hpf Urine Mucus (None) /hpf 12/15/24 12/15/24 Range/Units 17:11 17:26 WBC (4.50-10.00) 10*3/uL RBC (4.40-5.60) 10*6/uL Hgb (13.0-17.0) g/dL Hct (39.6-50.0) % MCV (80.0-97.0) fL MCH (27.0-32.0) pg MCHC (32.0-37.0) g/dL Plt Count (140-440) 10*3/uL MPV (9.5-12.2) fL Immature Gran % (Auto) % Neutrophils % % Lymphocytes % % Monocytes % % Eosinophils % % Basophils % % Immature Gran # (0.00-0.04) 10*3/uL Neutrophils # (1.80-7.70) 10*3/uL Lymphocytes # (0.90-5.00) 10*3/uL Monocytes # (0.20-1.00) 10*3/uL Eosinophils # (0.04-0.35) 10*3/uL Basophils # (0.00-0.10) 10*3/uL Sodium (137-145) mmol/L Potassium (3.5-5.1) mmol/L Chloride (98-107) mmol/L Carbon Dioxide (22-30) mmol/L Anion Gap mmol/L BUN (9-20) mg/dL Creatinine (0.66-1.25) mg/dL Est GFR (CKD-EPI)AfAm (>60 ml/min/1.73 sqM) Est GFR (CKD-EPI)NonAf (>60 ml/min/1.73 sqM) Glucose (74-99) mg/dL Lactic Ac Sepsis Rflx Y Plasma Lactic Acid Cristofer (0.7-2.0) mmol/L Calcium (8.4-10.2) mg/dL Total Bilirubin (0.2-1.3) mg/dL AST (17-59) U/L ALT (4-49) U/L Alkaline Phosphatase (38-126) U/L Total Protein (6.3-8.2) g/dL Albumin (3.5-5.0) g/dL Amylase (30-110) U/L Lipase (23-300) U/L Urine Color Colorless Urine Appearance Clear (Clear) Urine pH 7.5 (5.0-8.0) Ur Specific [place] 1.006 (1.001-1.035) Urine Protein Negative (Negative) Urine Glucose (UA) Negative (Negative) Urine Ketones Negative (Negative) Urine Blood Moderate H (Negative) Urine Nitrite Negative (Negative) Urine Bilirubin Negative (Negative) Urine Urobilinogen <2.0 (<2.0) mg/dL Ur Leukocyte Esterase Negative (Negative) Urine RBC 49 H (0-5) /hpf Urine WBC 4 (0-5) /hpf Urine Bacteria Occasional H (None) /hpf Urine Mucus Rare H (None) /hpf Disposition Clinical Impression: Ureterolithiasis Disposition: HOME SELF-CARE Condition: Good Instructions (If sedation given, give patient instructions): Kidney Stones (ED) Prescriptions: Tamsulosin [Flomax] 0.4 mg PO DAILY 14 Days #14 cap Ketorolac [Toradol] 15 mg IM TID PRN 5 Days #15 each PRN Reason: Pain Is patient prescribed a controlled substance at d/c from ED?: No Referrals: Crescencio Young MD [Primary Care Provider] - 1-2 days Booker Galvan MD [STAFF PHYSICIAN] - 1-2 days Time of Disposition: 18:55
--- NOTE | 2024-12-15 18:06 | CT ---
EXAMINATION TYPE: CT abdomen pelvis wo con DATE OF EXAM: 12/15/2024 5:19 PM COMPARISON: 01/15/2018 CLINICAL INDICATION: Male, 69 years old with history of abdominal pain. left flank pain; left flank p ain TECHNIQUE: Axial CT abdomen pelvis wo con;Sagittal and coronal reformats were created on a separate workstation. Contrast used: mL of , (none if empty) Oral contrast used: without Oral Contrast (none if empty) CT DLP: 509.3 mGycm, Automated exposure control for dose reduction was used. FINDINGS: LOWER CHEST: Unremarkable ABDOMEN LIVER: Unremarkable GALLBLADDER AND BILE DUCTS: Unremarkable. PANCREAS: Unremarkable. SPLEEN: Unremarkable. ADRENAL GLANDS: Unremarkable. KIDNEYS AND URETERS: Mild left hydronephrosis secondary obstructing 5 mm calculus at the ureteropelvi c junction. Additional nonobstructing renal calculi in the left measuring up to 4 mm. No right renal calculi. No right hydronephrosis. PELVIS BLADDER: No evidence for wall thickening or mass given limitations of exam. REPRODUCTIVE: Unremarkable. ABDOMEN & PELVIS STOMACH AND BOWEL: No evidence of bowel obstruction. The appendix is normal. Postsurgical changes wit h suture seen in the left midabdomen small bowel. PERITONEUM/RETROPERITONEUM: No evidence of pneumoperitoneum or free fluid. There is ill-defined soft tissue in the mesentery series 202 image 48 not definitively seen on prior possibly related small bow el surgery seen in the nearby small bowel. VASCULATURE: No evidence of aortic aneurysm. MUSCULOSKELETAL: No acute osseous abnormalities. Moderate disc degeneration changes are present throu ghout the thoracolumbar spine. LYMPH NODES: No gross evidence for lymphadenopathy. SOFT TISSUE/ABDOMINAL WALL: Multiple fat-containing ventral hernias. Fat-containing inguinal hernias. IMPRESSION: Mild left hydronephrosis secondary to 5 mm calculus at the ureteropelvic junction. Additional nonobs tructing renal calculi. [facility], , 12/15/2024 6:03 PM
[2024-12-15 18:26] LABS: Appearance,Urine Clear (Clear); Bacteria,Urine Occasional /hpf; Bilirubin,Urine Negative (Negative); Blood,Urine Moderate (Negative); Color,Urine Colorless; Glucose,Urine (UA) Negative (Negative); Ketones,Urine Negative (Negative); Leukocyte Esterase,Urine Negative (Negative); Mucus,Urine Rare /hpf; Nitrite,Urine Negative (Negative); PH, Urine 7.5 (5.0-8.0); Protein,Urine Negative (Negative); RBC,Urine 49 /hpf (0-5); Specific Gravity,Urine 1.006 (1.001-1.035); Urobilinogen,Urine <2.0 mg/dL (<2.0); WBC,Urine 4 /hpf (0-5)
[2024-12-15] MEDS: ONDANSETRON 4 MG ODT STARTER PACK 2 TAB BTL PO STA (19:04)
[2024-12-15] MEDS: ACET/COD 300 MG/30 MG STARTER PACK 6 TAB BTL PO STA (19:04)
[2024-12-15] MEDS: TAMSULOSIN 0.4 MG CAP.ER.24H PO STA (19:05)
[2024-12-15 19:14] VITALS: BP 151/82; PULSE 69; RESP 18; TEMP 97.9
--- NOTE | 2024-12-16 13:41 | ED ---
Medical Decision Making - Lab Data Result diagrams: 12/15/24 16:19 12/15/24 16:19 Lab Results 12/15/24 12/15/24 12/15/24 Range/Units 16:19 16:19 16:19 WBC 8.09 (4.50-10.00) 10*3/uL RBC 5.32 (4.40-5.60) 10*6/uL Hgb 15.5 (13.0-17.0) g/dL Hct 45.6 (39.6-50.0) % MCV 85.7 (80.0-97.0) fL MCH 29.1 (27.0-32.0) pg MCHC 34.0 (32.0-37.0) g/dL Plt Count 262 (140-440) 10*3/uL MPV 9.1 L (9.5-12.2) fL Immature Gran % (Auto) 0.1 % Neutrophils % 71.2 % Lymphocytes % 21.6 % Monocytes % 5.1 % Eosinophils % 1.4 % Basophils % 0.6 % Immature Gran # 0.01 (0.00-0.04) 10*3/uL Neutrophils # 5.76 (1.80-7.70) 10*3/uL Lymphocytes # 1.75 (0.90-5.00) 10*3/uL Monocytes # 0.41 (0.20-1.00) 10*3/uL Eosinophils # 0.11 (0.04-0.35) 10*3/uL Basophils # 0.05 (0.00-0.10) 10*3/uL Sodium 137 (137-145) mmol/L Potassium 4.5 (3.5-5.1) mmol/L Chloride 101 (98-107) mmol/L Carbon Dioxide 24 (22-30) mmol/L Anion Gap 12 mmol/L BUN 16 (9-20) mg/dL Creatinine 0.89 (0.66-1.25) mg/dL Est GFR (CKD-EPI)AfAm >90 (>60 ml/min/1.73 sqM) Est GFR (CKD-EPI)NonAf 88 (>60 ml/min/1.73 sqM) Glucose 111 H (74-99) mg/dL Lactic Ac Sepsis Rflx Plasma Lactic Acid Cristofer 3.1 H* (0.7-2.0) mmol/L Calcium 10.1 (8.4-10.2) mg/dL Total Bilirubin 0.6 (0.2-1.3) mg/dL AST 36 (17-59) U/L ALT 23 (4-49) U/L Alkaline Phosphatase 85 (38-126) U/L Total Protein 7.8 (6.3-8.2) g/dL Albumin 4.9 (3.5-5.0) g/dL Amylase 72 (30-110) U/L Lipase 143 (23-300) U/L Urine Color Urine Appearance (Clear) Urine pH (5.0-8.0) Ur Specific [place] (1.001-1.035) Urine Protein (Negative) Urine Glucose (UA) (Negative) Urine Ketones (Negative) Urine Blood (Negative) Urine Nitrite (Negative) Urine Bilirubin (Negative) Urine Urobilinogen (<2.0) mg/dL Ur Leukocyte Esterase (Negative) Urine RBC (0-5) /hpf Urine WBC (0-5) /hpf Urine Bacteria (None) /hpf Urine Mucus (None) /hpf 12/15/24 12/15/24 Range/Units 17:11 17:26 WBC (4.50-10.00) 10*3/uL RBC (4.40-5.60) 10*6/uL Hgb (13.0-17.0) g/dL Hct (39.6-50.0) % MCV (80.0-97.0) fL MCH (27.0-32.0) pg MCHC (32.0-37.0) g/dL Plt Count (140-440) 10*3/uL MPV (9.5-12.2) fL Immature Gran % (Auto) % Neutrophils % % Lymphocytes % % Monocytes % % Eosinophils % % Basophils % % Immature Gran # (0.00-0.04) 10*3/uL Neutrophils # (1.80-7.70) 10*3/uL Lymphocytes # (0.90-5.00) 10*3/uL Monocytes # (0.20-1.00) 10*3/uL Eosinophils # (0.04-0.35) 10*3/uL Basophils # (0.00-0.10) 10*3/uL Sodium (137-145) mmol/L Potassium (3.5-5.1) mmol/L Chloride (98-107) mmol/L Carbon Dioxide (22-30) mmol/L Anion Gap mmol/L BUN (9-20) mg/dL Creatinine (0.66-1.25) mg/dL Est GFR (CKD-EPI)AfAm (>60 ml/min/1.73 sqM) Est GFR (CKD-EPI)NonAf (>60 ml/min/1.73 sqM) Glucose (74-99) mg/dL Lactic Ac Sepsis Rflx Y Plasma Lactic Acid Cristofer (0.7-2.0) mmol/L Calcium (8.4-10.2) mg/dL Total Bilirubin (0.2-1.3) mg/dL AST (17-59) U/L ALT (4-49) U/L Alkaline Phosphatase (38-126) U/L Total Protein (6.3-8.2) g/dL Albumin (3.5-5.0) g/dL Amylase (30-110) U/L Lipase (23-300) U/L Urine Color Colorless Urine Appearance Clear (Clear) Urine pH 7.5 (5.0-8.0) Ur Specific [place] 1.006 (1.001-1.035) Urine Protein Negative (Negative) Urine Glucose (UA) Negative (Negative) Urine Ketones Negative (Negative) Urine Blood Moderate H (Negative) Urine Nitrite Negative (Negative) Urine Bilirubin Negative (Negative) Urine Urobilinogen <2.0 (<2.0) mg/dL Ur Leukocyte Esterase Negative (Negative) Urine RBC 49 H (0-5) /hpf Urine WBC 4 (0-5) /hpf Urine Bacteria Occasional H (None) /hpf Urine Mucus Rare H (None) /hpf Disposition Clinical Impression: Ureterolithiasis Disposition: HOME SELF-CARE Condition: Good Instructions (If sedation given, give patient instructions): Kidney Stones (ED) Prescriptions: Tamsulosin [Flomax] 0.4 mg PO DAILY 14 Days #14 cap Ketorolac [Toradol] 10 mg PO Q8HR #15 tab Is patient prescribed a controlled substance at d/c from ED?: No Referrals: Crescencio Young MD [Primary Care Provider] - 1-2 days Booker Galvan MD [STAFF PHYSICIAN] - 1-2 days
== END 2024-12-15 19:12 | disposition home or self-care (01) ==
LOC: EC 15:18
DX: N13.2 Hydronephrosis with renal and ureteral calculous obstruction (principal); Z85.72 Personal history of non-Hodgkin lymphomas
CPT/HCPCS: 36415; 80053; 82150; 83605; 83690; 85025; 81001; 74176; 99284; 96374; 96375; 96361; J2270; J2405; J1885; S0119; J2470